=== PATIENT | male | born 1955 | race Caucasian/White ===

== ENCOUNTER 2020-05-21 17:37 | Emergency (ER) | payer MEDICARE ==
[~2020-05-21] VITALS: Ht 177.8 cm; Wt 79.0 kg
[2020-05-21 18:35] LABS: BASOPHILS # (AUTO) 0.1 X10'3 (0-0.2); BASOPHILS % (AUTO) 0.4 % (0-1); EOSINOPHILS % (AUTO) 0.1 % (0-6); HEMATOCRIT 47.5 % (42.0-52.0); HEMOGLOBIN 16.1 g/dl (14.0-17.9); LYMPHOCYTES # (AUTO) 0.9 X10'3 (1.1-4.8); LYMPHOCYTES % (AUTO) 5.6 % (21-51); MEAN CORPUSCULAR HEMOGLOBIN 29.2 PG (27.0-31.0); MEAN CORPUSCULAR HGB CONC 33.8 g/dL (33.0-36.5); MEAN CORPUSCULAR VOLUME 86.3 FL (78-98); MEAN PLATELET VOLUME 7.7 FL (7.4-10.4); MONOCYTES # (AUTO) 0.7 X10'3 (0-0.9); MONOCYTES % (AUTO) 4.3 % (2-12); NEUTROPHILS # (AUTO) 14.4 X10'3 (1.8-7.7); NEUTROPHILS % (AUTO) 89.6 % (42-75); PLATELET COUNT 267 X10'3 (140-440); RED BLOOD COUNT 5.51 X10'6 (4.70-6.10); RED CELL DISTRIBUTION WIDTH 13.4 % (11.5-14.5)
[2020-05-21 18:54] LABS: ALANINE AMINOTRANSFERASE 34 U/L (12-78); ALBUMIN/GLOBULIN RATIO 1.5 (1.1-1.5); ALKALINE PHOSPHATASE 62 IU/L (46-116); ANION GAP 11 (8-16); ASPARTATE AMINO TRANSFERASE 21 U/L (10-37); BILIRUBIN,TOTAL 0.8 MG/DL (0.1-1.0); BLOOD UREA NITROGEN 15 MG/DL (7-18); BUN/CREATININE RATIO 14.4 (5.4-32.0); CALCIUM 9.7 MG/DL (8.5-10.1); CHLORIDE 105 MMOL/L (99-107); CREATININE 1.04 MG/DL (0.60-1.10); GLUCOSE 129 MG/DL (70-104); LIPASE 107 U/L (73-393); POTASSIUM 4.2 MMOL/L (3.5-5.1); SODIUM 142 MMOL/L (135-145); TOTAL CARBON DIOXIDE 26.1 MMOL/L (24-32); TOTAL PROTEIN 8.3 G/DL (6.4-8.2); eGFR 72 ML/MIN
[2020-05-21] MEDS ORDERED: sucralfate 1gm/10ml UD suspension PO STA (19:57)
[2020-05-21] MEDS ORDERED: mag hydrox/Alum hydrox/simeth 30ml oral suspension PO ONE (20:00)
[2020-05-21] MEDS ORDERED: LIDOcaine Viscous 15ml cup TP ONE (20:00)
--- NOTE | 2020-05-21 20:20 | NUR ---
PT REMINDED THAT URINE SAMPLE IS NEEDED, PT STATES "I CANT JUST PUSH IT OUT, ILL GO WHEN I CAN GET SOME WATER IN ME". PT REMINDED THAT DUE TO CURRENT NAUSEA AND VOMTING, NO WATER CAN BE GIVEN.
[2020-05-21 21:00] LABS: CLARITY,URINE CLEAR (Clear); COLOR,URINE YELLOW (Yellow); GLUCOSE, URINE NEGATIVE (Neg); KETONES,URINE >=80 mg/dl (Neg); LEUKOCYTE ESTERASE ,URINE NEGATIVE (Neg); NITRITES, URINE NEGATIVE (Neg); OCCULT BLOOD,URINE TRACE-INTACT (Neg); PH,URINE 5.5 (4.8-8.0); PROTEIN,URINE NEGATIVE (Neg)
[2020-05-21 21:06] LABS: UA COLLECTION TYPE URINAL
[2020-05-21 21:15] LABS: BACTERIA,URINE NONE SEEN /HPF (Neg); RBC,URINE NONE SEEN /HPF (0-2); SQUAMOUS EPITHELIAL CELL,UR NONE SEEN /LPF (FEW); WBC,URINE NONE SEEN /HPF (0-4)
[2020-05-21] MEDS ORDERED: SUCR1TAB34 PO (22:27)
[2020-05-21 22:55] VITALS: BP 149/75
== END 2020-05-21 22:56 | disposition home or self-care (01) ==
LOC: ER 17:37
DX: R10.10 Upper abdominal pain, unspecified (principal); R11.2 Nausea with vomiting, unspecified; E78.00 Pure hypercholesterolemia, unspecified; I10 Essential (primary) hypertension; Z88.0 Allergy status to penicillin; Z88.8 Allergy status to other drugs, medicaments and biological substances; Z79.899 Other long term (current) drug therapy
CPT/HCPCS: 36415; 71045; 76700; 80053; 81001; 83690; 85025; 99285

== ENCOUNTER 2023-09-08 16:18 | Emergency (ER) | payer MEDICARE ==
[~2023-09-08] VITALS: Ht 177.8 cm; Wt 93.8 kg
[~2023-09-08 16:18] MED LIST: ATOR40TA71 PO; METO-395 PO; NITR0.4T SL
[2023-09-08] MEDS ORDERED: LIDOcaine 1% W/epiNEPHrine 1:100,000 20ml vial SQ ONE (18:35)
[2023-09-08] MEDS ORDERED: LIDOCAINE 1%/EPI 1:100,000 inj. 10 ML multi-dose vial SQ ONE (18:40)
[2023-09-08] MEDS ORDERED: cephalexin 500mg capsule PO ONE (19:10)
[2023-09-08] MEDS ORDERED: CEPH-585 PO ×2 (19:15)
[2023-09-08 19:43] VITALS: BP 160/82; PULSE 67; RESP 15; TEMP 98.5; O2SAT 99
[2023-09-08] MEDS ORDERED: DOXY150T3 PO (20:28)
== END 2023-09-08 19:49 | disposition home or self-care (01) ==
LOC: ER 16:19
DX: M79.5 Residual foreign body in soft tissue (principal); E78.00 Pure hypercholesterolemia, unspecified; I10 Essential (primary) hypertension; Z79.2 Long term (current) use of antibiotics; Z79.899 Other long term (current) drug therapy
CPT/HCPCS: 10120; 12006; 73090; 99285; A6258; A6449